=== PATIENT | female | born 1995 | race Caucasian/White ===

== ENCOUNTER 2020-08-23 21:37 | Emergency (ER) | payer BC, OTHER ==
--- OUTSIDE RECORDS SUMMARY | 2020-08-23 21:42 | XMS REPORT | Continuity of Care Document ---
:[address] [facility] t Address [address] [place] [address] Care Team Providers Name Role Phone Radiology Attending Clinician Unavailable Payers Payer Name Policy Type Policy Number Effective Date Expiration Date S ource Problems This patient has no known problems. Allergies, Adverse Reactions, Alerts Allergy Allergy Status Severity Reaction(s) Onset Inactive Treating Comm ents Source Name Type Date Date Clinician jimmy FA Active [place] 2020[facility]0 [facility] [place] [facility] [place] 2020[facility] [place] [place] [facility] [place] 2020[facility] [place] 2020[facility] [place] 2020[facility] [place] Medications This patient has no known medications. Procedures This patient has no known procedures. Encounters Start End Encounter Admission Attending Care Care Encounter Source Date/Time Date/Time Type Type Clinicians Facility Department ID 2020-07-04 2020-07-04 [facility] Radiology [facility] [id number] 16:51:11 23:59:00 Encounter Syd [id number] [place] [id number] [place] [id number] Results Test Description Test Time Test Comments Results Result Comments Source GLUBED 2019-07-16 09:16:00 Test Item Value Reference Range Interpretation Comme nts GLUBED (test code = GLUBED) 79 mg/dL 65-110 N [id number] 06:55:00 Test Item Value Reference Range Interpretation Comments GLUBED (test code = GLUBED) 77 mg/dL 65-110 N [id number] 21:38:00 Test Item Value Reference Range Interpretation Comments GLUBED (test code = GLUBED) 123 mg/dL 65-110 H [id number] 18:08:00 Test Item Value Reference Range Interpretation Comments GLUBED (test code = GLUBED) 71 mg/dL 65-110 N [id number] 15:06:00 Test Item Value Reference Range Interpretation Comments GLUBED (test code = GLUBED) 133 mg/dL 65-110 H [id number] 14:39:00 Test Item Value Reference Range Interpretation Comments GLUBED (test code = GLUBED) 134 mg/dL 65-110 H CBC W/AUTO [id number] 10:57:00 Test Item Value Reference Range Interpretation Comments WHITE BLOOD CELL (test code = WBC) 10.8 K/mm3 6.6-12.1 N RED BLOOD CELL (test code = RBC) 3.19 M/mm3 3.45-5.01 L HEMOGLOBIN (test code = HGB) 10.0 g/dL 10.7-13.9 L HEMATOCRIT (test code = HCT) 30.4 % 32.1-42.1 L MEAN CELL VOLUME (test code = MCV) 95 fL 84.1-94.8 H MEAN CELL HGB (test code = MCH) 31.3 pg 27-35 N MEAN CELL HGB CONCETRATION (test 32.9 gm/dL 32.2-34.1 N code = MCHC) RED CELL DISTRIBUTION WIDTH (test 13.8 % 12.4-16.5 N code = RDW) PLATELET COUNT (test code = PLT) 268 K/mm3 133-385 N MEAN PLATELET VOLUME (test code = 9.6 fl 9.1-12.7 N MPV) NEUTROPHIL % (test code = NT%) 79.1 % 56.5-79.4 N LYMPHOCYTE % (test code = LY%) 11.3 % 14.3-34.3 L MONOCYTE % (test code = MO%) 5.5 % 5.1-10.4 N EOSINOPHIL % (test code = EO%) 3.3 % 0.1-3.0 H BASOPHIL % (test code = BA%) 0.4 % 0.1-1.0 N NEUTROPHIL # (test code = NT#) 8.5 K/mm3 LYMPHOCYTE # (test code = LY#) 1.2 K/mm3 MONOCYTE # (test code = MO#) 0.6 K/mm3 EOSINOPHIL # (test code = EO#) 0.36 K/mm3 BASOPHIL # (test code = BA#) 0.0 K/mm3 RBC MORPHOLOGY REQUIRED (test code NORMAL NORMAL = RBCM) PLATELET MORPHOLOGY REQUIRED (test NORMAL NORMAL code = PLTMR) [id number] 09:42:00 Test Item Value Reference Range Interpretation Comments GLUBED (test code = GLUBED) 127 mg/dL 65-110 H [id number] 07:05:00 Test Item Value Reference Range Interpretation Comments GLUBED (test code = GLUBED) 81 mg/dL 65-110 N [id number] 20:38:00 Test Item Value Reference Range Interpretation Comments GLUBED (test code = GLUBED) 144 mg/dL 65-110 H [id number] 20:08:00 Test Item Value Reference Range Interpretation Comments GLUBED (test code = GLUBED) 108 mg/dL 65-110 N PLACENTA THIRD [id number] 14:25:00 RUN DATE: 07/14/19 [facility] PAGE 1 RUN TIME: 1443 Specimen Inquiry RUN USER: INTERFACE PATIENT: HENRI VILLAR LOC: RAFAEL U #: [id number] AGE/SX: ROOM: [age] RE07/12/19REG DR: Seble Thayer MD : 89 BED: A DIS: STATUS: ADM IN TLOC: SPEC #: [id number] RECD: 07/13/19 STATUS: DIVINE GARRETT #: [id number] LORENZO: 07/13/19- SUBM DR: Seble Thayer MD ENTERED: 07/13/19 SP TYPE: PLACIII OTHR DR: Ginette Anderson MD, Eric A MDORDERED: LEVEL V SURGICA CODES: [id number] - PLACENTA, NOS [place]IES [place]: [place] [id number] [place] [address] Ginette Anderson MD[address] [facility] [address] [place] [address] [email or web address] [address] [facility] [address] [place] [address] PROCEDURES: LEVEL V SURGICA (Incomplete) TISSUES: PLACENTA, NOS - PLACENTA CLINICAL HISTORY 23 year old, 39.0 weeks, , primary elective section, IDDM type 1, poly (wpd) FINAL DIAGNOSIS Placenta, 39.0 weeks gestational age, section: - 3rd trimester placenta, 505 gm (55th percentile) - mixed villous maturation with areas of acceleratedand delayed maturation - trivascular umbilical cord and membranes free of inflammation CPT code(s): 16084 [facility]/ritika CONTINUED ON NEXT PAGE ------- -----RUN DATE: 07/14/19 [facility] PAGE 2 RUN TIME: 1443 Specimen Inquiry RUN USER: INTERFACE SPEC #: [id number] PATIENT: HENRI VILLAR #[id number] (Continued) GROSS DESCRIPTION The specimen was received in a container, labeled with the patient's name, unit number and designated "placenta". The following attributes are observed: Cord insertion: 3 cm from margin Cord length: 10 cm Number of vessels: 3 Cord color: Jessica-red Other cord findings: Less than 12 twists per 10 cm surface findings: Steel blue, wrinkled, glistening with focal subchorionic fibrin deposition Vasculature: Displays unremarkable blood vasculature Membranes rupture site: 1 cm to margin Membrane color: Jessica Other membrane findings: Thickened The trimmed placental weight: 505 gm Disk measurement: 19.0 x 17.0 x 3.5 cmin greatest dimension Accessory lobes: None Maternal surface:Lobulated and intact Parenchyma: Red, beefy, and spongy with peripheral fibr osis Parenchyma lesions: None Cassettes: A1 through A4 trinidad/sofia 07/13/19 Signed Whitley Munguia MD 07/14/19 1425 - END OF REPORT [id number] 12:46:00 Test Item Value Reference Range Interpretation Comments GLUBED (test code = GLUBED) 149 mg/dL 65-110 H [id number] 07:09:00 Test Item Value Reference Range Interpretation Comments GLUBED (test code = GLUBED) 88 mg/dL 65-110 N [id number] 00:32:00 Test Item Value Reference Range Interpretation Comments GLUBED (test code = GLUBED) 133 mg/dL 65-110 H HGB [id number] 07:15:00 Test Item Value Reference Range Interpretation Comments HEMOGLOBIN (test code = HGB) 10.1 g/dL 10.7-13.9 L HEMATOCRIT (test code = HCT) 30.1 % 32.1-42.1 L [id number] 10:03:00 Test Item Value Reference Range Interpretation Comments GLUCOSE (test code = GLU) 118 mg/dL 65-110 H AG HEPATITIS B [id number] 13:37:00 Test Item Value Reference Range Interpretation Comments AG HEPATITIS B SURFACE (test code NONREACTIVE NONREACTIVE = HBSAG) : *IS CONSENT FORM SIGNED FOR HIV TESTING? YAB HEPATITIS C [id number] 13:37:00 Test Item Value Reference Range Interpretation Comments AB HEPATITIS C (test code = NONREACTIVE NONREACTIVE HCVAB) SIGNAL TO CUTOFF (test code = 0.23 <0.80 N CUTOFF) : *IS CONSENT FORM SIGNED FOR HIV TESTING? YAB [id number] 13:37:00 Test Item Value Reference Range Interpretation Comments AB TREPONEMA (test code = TREPAB) NONREACTIVE NONREACTIVE : *IS CONSENT FORM SIGNED FOR HIV TESTING? YAB HIV 1 13:37:00 Test Item Value Reference Range Interpretation Comments AB HIV 1 2 (test NONREACTIVE NONREACTIVE Done by [facility] code = [id number]) 4th Gen HIV Ag/Ab Combo Screen : *IS CONSENT FORM SIGNED FOR HIV TESTING? YCBC W/AUTO [id number] 11:26:00 Test Item Value Reference Range Interpretation Comments WHITE BLOOD CELL (test code = WBC) 9.0 K/mm3 6.6-12.1 N RED BLOOD CELL (test code = RBC) 3.93 M/mm3 3.45-5.01 N HEMOGLOBIN (test code = HGB) 12.4 g/dL 10.7-13.9 N HEMATOCRIT (test code = HCT) 37.4 % 32.1-42.1 N MEAN CELL VOLUME (test code = MCV) 95 fL 84.1-94.8 H MEAN CELL HGB (test code = MCH) 31.6 pg 27-35 N MEAN CELL HGB CONCETRATION (test 33.2 gm/dL 32.2-34.1 N code = MCHC) RED CELL DISTRIBUTION WIDTH (test 13.5 % 12.4-16.5 N code = RDW) PLATELET COUNT (test code = PLT) 278 K/mm3 133-385 N MEAN PLATELET VOLUME (test code = 10.6 fl 9.1-12.7 N MPV) NEUTROPHIL % (test code = NT%) 73.1 % 56.5-79.4 N LYMPHOCYTE % (test code = LY%) 16.4 % 14.3-34.3 N MONOCYTE % (test code = MO%) 8.2 % 5.1-10.4 N EOSINOPHIL % (test code = EO%) 1.3 % 0.1-3.0 N BASOPHIL % (test code = BA%) 0.6 % 0.1-1.0 N NEUTROPHIL # (test code = NT#) 6.6 K/mm3 LYMPHOCYTE # (test code = LY#) 1.5 K/mm3 MONOCYTE # (test code = MO#) 0.7 K/mm3 EOSINOPHIL # (test code = EO#) 0.12 K/mm3 BASOPHIL # (test code = BA#) 0.1 K/mm3 RBC MORPHOLOGY REQUIRED (test code NORMAL NORMAL = RBCM) PLATELET MORPHOLOGY REQUIRED (test NORMAL NORMAL code = PLTMR)
[2020-08-23 22:55] LABS: Urine Blood 2+ (Negative); Urine Glucose Negative (Negative); Urine Protein Negative (Negative); Urine Specific Gravity 1.015 (1.005-1.030)
[2020-08-23 23:10] LABS: Absolute Lymphocytes (CBC) 2.2 K/uL (0.7-4.9); Basophils % 0.6 % (0-1.3); Hematocrit 34.7 % (36.0-45.0); Lymphocytes % 19.6 % (15.3-44.8); MPV 7.6 fL (7.6-11.3)
[2020-08-24 00:13] LABS: BUN Blood Urea Nitrogen 7 mg/dL (7-18); Bicarbonate 25 mmol/L (21-32); Glucose Level 93 mg/dL (74-106); HCG, Quantitative 66690 mIU/mL (1-3); Potassium 3.5 mmol/L (3.5-5.1); Sodium Level 140 mmol/L (136-145)
--- NOTE | 2020-08-24 00:48 | ER ---
Nurse's Notes [facility] Name: Jo Cristobal Age: 24 yrs Sex: Female : 1995 Arrival Date: 08/23/2020 Time: 21:40 Bed 17 Private MD: Diagnosis: Threatened Presentation: 08/23 21:47 Chief complaint: Patient states: 14 weeks . 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 denies HX of miscarriage. Coronavirus screen: Client denies travel out of the [place] in the last 14 days. At this time, the client does not indicate any symptoms associated with coronavirus-19. Ebola Screen: Patient negative for fever greater than or equal to 101.5 degrees Fahrenheit, and additional compatible Ebola Virus Disease symptoms Patient denies exposure to infectious person. Patient denies travel to an Ebola-affected area in the 21 days before illness onset. No symptoms or risks identified at this time. Initial Sepsis Screen: Does the patient meet any 2 criteria? No. Patient's initial sepsis screen is negative. Does the patient have a suspected source of infection? No. Patient's initial sepsis screen is negative. Risk Assessment: Do you want to hurt yourself or someone else? Patient reports no desire to harm self or others. Onset of symptoms was August 23, 2020. 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 Flu vaccine is up to date. - Social history:: Smoking status: Patient denies any tobacco usage or history of. Screenin:28 Abuse screen: Denies threats or abuse. Denies injuries from another. Nutritional jm8 screening: No deficits noted. Tuberculosis screening: No symptoms or risk factors identified. Fall Risk None identified. Assessment: 23:22 General: Appears in no apparent distress. comfortable, Behavior is calm, cooperative, jm8 appropriate for age. Pain: Complains of pain in abdomen Pain currently is 3 out of 10 on a pain scale. Quality of pain is described as crampy. Neuro: No deficits noted. Level of Consciousness is awake, alert, obeys commands, Oriented to person, place, time. Cardiovascular: No deficits noted. Respiratory: No deficits noted. Airway is patent Trachea midline Respiratory effort is even, unlabored. GI: Reports lower abdominal pain, since 9 pm vaginal bleeding. : Last void was August 23, 2020. Reports vaginal bleeding that is brown, heavy flow. EENT: No deficits noted. No signs and/or symptoms were reported regarding the EENT system. Derm: No deficits noted. No signs and/or symptoms reported regarding the dermatologic system. Musculoskeletal: No deficits noted. No signs and/or symptoms reported regarding the musculoskeletal system. Vital Signs: 21:47 Weight 63.96 kg (R); Height 5 ft. 8 in. (172.72 cm) (R); Pain 7/10; ca1 21:53 BP 141 / 97; Pulse 83; Resp 16 S; Temp 98.2(O); Pulse Ox 100% on R/A; ca1 08/24 01:19 BP 122 / 84; Pulse 82; Resp 16; Pulse Ox 100% on R/A; jm8 08/23 21:47 Body Mass Index 21.44 (63.96 kg, 172.72 cm) ca1 ED Course: 08/23 21:40 Patient arrived in ED. bp1 21:48 Triage completed. ca1 21:49 Arlyn Armas FNP-C is PHCP. kb 21:49 Arm band placed on right wrist. ca1 21:50 Chi Chapman MD is Attending Physician. kb 22:37 Matter Eval Tm 1 In Process Unspecified. EDMS 22:44 Inserted saline lock: 22 gauge in right antecubital area, using aseptic technique. ds4 Blood collected. 23:28 Patient has correct armband on for positive identification. Bed in low position. Call jm8 light in reach. Side rails up X2. 08/24 01:20 No provider procedures requiring assistance completed. IV discontinued, intact, jm8 bleeding controlled, No redness/swelling at site. Administered Medications: 01:04 Drug: RhoGAM (Human) 300 mcg Route: IM; Site: right deltoid; jm8 01:21 Follow up: Response: No adverse reaction jm8 Outcome: 00:48 Discharge ordered by . doc 01:20 Discharged to home ambulatory, with significant other. jm8 01:20 Condition: good 01:20 Discharge instructions given to patient, family, Instructed on discharge instructions, follow up and referral plans. Demonstrated understanding of instructions, follow-up care. 01:21 Patient left the ED. jm8 Signatures: Dispatcher [employer] EDMS Arlyn Armas, SERIALS LIBRARIAN-C SERIALS LIBRARIAN-Ckb Sukhdev Mosquera ds4 Yamile Samson RN RN Ceci Kaur Joseph, RN RN jm8
--- NOTE | 2020-08-24 00:49 | EDPHYS ---
Physician Documentation [facility] Name: Jo Cristobal Age: 24 yrs Sex: Female : 1995 Arrival Date: 08/23/2020 Time: 21:40 Bed 17 Private MD: ED Physician Chi Chapman HPI: 08/24 00:16 This 24 yrs old Female presents to ER via Ambulatory with complaints of kb Vaginal Bleeding, Preg 14 wks. 00:16 The patient presents with vaginal bleeding that is moderate. Onset: The kb symptoms/episode began/occurred 1 hour(s) ago. Modifying factors: The symptoms are alleviated by nothing, the symptoms are aggravated by nothing. Associated signs and symptoms: Pertinent positives: cramping, vaginal bleeding. Severity of symptoms: At their worst the symptoms were moderate, in the emergency department the symptoms are unchanged. The patient has not experienced similar symptoms in the past. The patient has not recently seen a physician. 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 Flu vaccine is up to date. - Social history:: Smoking status: Patient denies any tobacco usage or history of. ROS: 23:40 Constitutional: Negative for fever, chills, and weight loss. kb 08/24 00:15 Abdomen/GI: Positive for abdominal cramps, Negative for nausea, vomiting, and diarrhea. kb : Positive for vaginal bleeding. All other systems are negative. Exam: 00:15 Constitutional: This is a well developed, well nourished patient who is awake, alert, kb and in no acute distress. Head/Face: Normocephalic, atraumatic. ENT: Moist Mucous membranes Cardiovascular: Regular rate and rhythm with a normal S1 and S2. No gallops, murmurs, or rubs. No pulse deficits. Respiratory: Respirations even and unlabored. No increased work of breathing, no retractions or nasal flaring. Abdomen/GI: Soft, non-tender. No distention Skin: Warm, dry with normal turgor. Normal color. MS/ Extremity: Pulses equal, no cyanosis. Neurovascular intact. Full, normal range of motion. Neuro: Awake and alert, GCS 15, oriented to person, place, time, and situation. Moves all extremities. Normal gait. Psych: Awake, alert, with orientation to person, place and time. Behavior, mood, and affect are within normal limits. Vital Signs: 08/23 21:47 Weight 63.96 kg (R); Height 5 ft. 8 in. (172.72 cm) (R); Pain 7/10; ca1 21:53 BP 141 / 97; Pulse 83; Resp 16 S; Temp 98.2(O); Pulse Ox 100% on R/A; ca1 08/24 01:19 BP 122 / 84; Pulse 82; Resp 16; Pulse Ox 100% on R/A; jm8 08/23 21:47 Body Mass Index 21.44 (63.96 kg, 172.72 cm) ca1 MDM: 08/23 21:50 Patient medically screened. kb 23:36 Data reviewed: vital signs, nurses notes. Data interpreted: Pulse oximetry: on room air kb is 100 %. Interpretation: normal. 23:40 Counseling: I had a detailed discussion with the patient and/or guardian regarding: the kb historical points, exam findings, and any diagnostic results supporting the discharge/admit diagnosis, lab results, radiology results, the need for outpatient follow up, an OB/Gyne specialist, to return to the emergency department if symptoms worsen or persist or if there are any questions or concerns that arise at home. 08/23 22:10 Order name: Quantitative Hcg kb 08/23 22:10 Order name: Abo/rh Typing kb 08/23 22:10 Order name: Basic Metabolic Panel; Complete Time: 00:14 kb 08/23 22:10 Order name: CBC with Diff; Complete Time: 23:22 kb 08/23 22:10 Order name: HCG, Quantitative; Complete Time: 00:14 EDMS 08/23 22:54 Order name: Urine Dipstick-Ancillary; Complete Time: 23:03 EDAZ 08/23 22:56 Order name: Urine --Ancillary (enter results) ds4 08/24 00:40 Order name: Rh Typing [facility] 08/24 00:40 Order name: Antibody Screen [facility] 08/24 00:40 Order name: Fetalscreen [facility] 08/24 00:40 Order name: Cord Rh type [facility] 08/24 00:40 Order name: Rhogam [facility] 08/23 22:10 Order name: Urine Test (obtain specimen); Complete Time: 22:55 kb 08/23 22:10 Order name: IV Saline Lock; Complete Time: 22:55 kb 08/23 22:10 Order name: Labs collected and sent; Complete Time: 22:55 kb 08/23 22:10 Order name: NPO; Complete Time: 22:55 kb 08/23 22:10 Order name: Urine Dipstick-Ancillary (obtain specimen); Complete Time: 22:55 kb Administered Medications: 08/24 01:04 Drug: RhoGAM (Human) 300 mcg Route: IM; Site: right deltoid; 8 01:21 Follow up: Response: No adverse reaction jm8 Disposition: 01:44 Co-signature as Attending Physician, Chi Chapman MD. rn Disposition: 08/24/20 00:48 Discharged to Home. Impression: Threatened . - Condition is Stable. - Discharge Instructions: Threatened Miscarriage, Txjj-cs-Potp, Vaginal Bleeding During , Second Trimester, Vzfz-sh-Djva. - Medication Reconciliation Form, Thank You Letter, Antibiotic Education, Prescription Opioid Use form. - Follow up: Emergency Department; When: As needed; Reason: Worsening of condition. Follow up: Private Physician; When: 2 - 3 days; Reason: Recheck today's complaints, Continuance of care, Re-evaluation by your physician. Signatures: Dispatcher [employer] [facility] Arlyn Armas, PLUMBING INSPECTOR-C PLUMBING INSPECTOR-Ckb Chi Chapman MD MD rn Yamile Samson, RN RN Homer Mancuso RN RN jm8 Corrections: (The following items were deleted from the chart) 08/23 22:37 22:11 Transvaginal Ob+US.RAD.BRZ ordered. [facility] 08/24 00:40 08/23 22:11 ABO/RH typing ordered. [facility] 08/24 01:21 00:48 08/24/2020 00:48 Discharged to Home. Impression: Threatened . Condition jm8 is Stable. Forms are Medication Reconciliation Form, Thank You Letter, Antibiotic Education, Prescription Opioid Use. Follow up: Emergency Department; When: As needed; Reason: Worsening of condition. Follow up: Private Physician; When: 2 - 3 days; Reason: Recheck today's complaints, Continuance of care, Re-evaluation by your physician. kb
[2020-08-24 01:18] LABS: Urine Specific Gravity/Preg 1.015 (1.005-1.030)
[2020-08-24 01:27] VITALS: TEMP 98.2; O2SAT 100
[2020-08-24 01:29] VITALS: BP 122/84
--- NOTE | 2020-08-24 11:08 | RAD REPORT ---
EXAM DESCRIPTION: US - 1St Trimest Single 1St Fetus - 08/24/2020 6:59 am CLINICAL HISTORY: 24 years, Female, ABD CRAMPING, COMPARISON: None FINDINGS: Multiple grayscale images of the female pelvis were performed transabdominally and endovag inally. The maternal adnexa were imaged and neither ovary was visualized. There is a single living intrauterine in perhaps mobile presentation with ultrasonographic measurements of AC mean measurement of 8.28 cm cm corresponding to an ultrasonographic gestational ag e of 14 weeks and 4 days. No additional measurements were performed. heart motion was detected at of 155 beats per minute. Placenta was posterior with no evidence for previa. The cervix demonstrate the presence of the distal area of anechoic material perhaps suggesting blood byproducts, best demonstrated on transvaginal imaging. GAURAV appropriate. IMPRESSION: SINGLE LIVING INTRAUTERINE IN MOBILE PRESENTATION WITH AN ULTRASONOGRAPHIC GES TATIONAL AGE OF 14 WEEKS AND 4 DAYS BY ABDOMINAL CIRCUMFERENCE ONLY. ANECHOIC MATERIAL WITHIN THE CERVIX PERHAPS CORRESPONDING TO BLOOD BYPRODUCTS. Electronically signed by: Javier Hawthorne MD 08/23/2020 10:52 PM CDT Due to temporary technical issues with the PACS/Fluency reporting system, reports are being signed by the in house radiologist without review as a courtesy to ensure prompt reporting. The interpreting r adiologist is fully responsible for the content of the report.
== END 2020-08-24 01:21 | disposition home or self-care (01) ==
LOC: ER 21:37
DX: O20.0 Threatened abortion (principal); O24.911 Unspecified diabetes mellitus in pregnancy, first trimester; Z96.41 Presence of insulin pump (external) (internal); Z3A.14 14 weeks gestation of pregnancy
CPT/HCPCS: 85025; 80048; 36415; 86850; 81025; 86901; 84702; 81003; 76801; 96372; 99284; J2790; 86900